=== PATIENT | male | born 1970 | race Caucasian/White ===

== ENCOUNTER 2021-04-09 20:18 | Emergency (ER) | payer BC, SELFPAY ==
[2021-04-09 20:42] VITALS: BP 143/96; PULSE 62; RESP 18; TEMP 36.8; O2SAT 98; BMI 29.6
--- NOTE | 2021-04-09 20:52 | HMH.EDUTC ---
[facility] [place] Disposition Clinical Impression: Laceration Disposition: Home, Self-Care Condition on Discharge: Good Instructions: DI for Laceration Repair -- Simple, DI for Laceration Repair Additional Instructions: return in 10 days for suture removal watch for s/s of infection keep area clean and dry Prescriptions: cephALEXin [Cephalexin 500mg Tab] 500 mg PO BID 7 Days #14 tab Prescription Printed Referrals: Provider,Referral, [Primary Care Provider] - Time of Disposition: 21:11 Medical Decision Making - Jose Inquiry Pt receiving controlled substance: No Vital Signs: 04/09/21 20:42 Temperature 98.3 F Temperature Source Oral Pulse Rate [Right Radial] 62 Respiratory Rate 18 Blood Pressure [Right Arm] 143/96 H Blood Pressure Mean [Right Arm] 111 Blood Pressure Source [Right Arm] Automatic Cuff Blood Pressure Position [Right Arm] Sitting 02 Sat by Pulse Oximetry 98 Oxygen Delivery Method Room Air [facility] [place] HPI - General Chief complaint: Urgent Treatment Center Stated complaint: cut left arm 04/09/21 @1200 Time Seen by Provider: 04/09/21 20:53 Mode of Arrival: Ambulatory Source of Information: Patient Limitations: No Limitations Description of Symptoms (Recalled from Triage Doc. by RN): c/o lac to left forearm HEENT Symptoms (Recalled from RN notes): No Resp Symptoms (Recalled from RN notes): No Skin Symptoms (Recalled from RN notes): Yes (lac to arm) MS Symptoms (Recalled from RN notes): No Functional Status (Recalled from RN notes): n/a - History of Present Illness Provider Complaint: 51 yr old male presnets for laceration to left forearm. pt states he was cutting a bandage off a calf and slipped and cut arm. kylie in 2019 - Related Data Previous Rx's Medication Instructions Recorded cephALEXin [Cephalexin 500mg Tab] 500 mg PO BID 7 Days #14 tab 04/09/21 - Worker's Comp Is this a Worker's Comp case?: No [facility] History - Hepatitis A Screen Drug use history?: No High risk sexual behaviors?: No History of sexually transmitted infection?: No Currently employed?: No Childcare worker?: No Do you have indoor plumbing?: Yes Do you have electricity?: Yes Attestation statement:: This patient has been screened for Hepatitis A risk factors. I have reviewed the patient's past medical history: Yes ROS Obtained: Yes Systems reviewed as appropriate & no additional complaints - Constitutional Constitutional: Reports system reviewed and no additional complaints, except as docu, Denies chills, Denies fever(s) - Eyes Eyes: Reports system reviewed and no additional complaints, except as docu, Denies blind spots - ENT Ears, Nose, Mouth, and Throat: Reports system reviewed and no additional complaints, except as docu, Denies sore throat - Cardiovascular Cardiovascular: Reports system reviewed and no additional complaints, except as docu, Denies chest pain - Respiratory Respiratory: Reports system reviewed and no additional complaints, except as docu, Denies shortness of breath - Gastrointestinal Gastrointestingal: Reports: system reviewed and no additional complaints, except as docu. Denies: abdominal pain - Genitourinary Male Genitourinary: Reports system reviewed and no additional complaints, except as docu - Musculoskeletal Musculoskeletal: Reports system reviewed and no additional complaints, except as docu, Denies joint pain - Integumentary/Breasts Skin/Breast: Reports system reviewed and no additional complaints, except as docu, Reports as per HPI, Reports rash - Neurologic Neurologic: Reports system reviewed and no additional complaints, except as docu, Denies dizziness - Endocrine Endocrine: Reports system reviewed and no additional complaints, except as docu, Denies fatigue - Hematologic/Lymphatic Henatologic/Lymphatic: Reports system reviewed and no additional complaints, except as docu, Denies easy bruising - Allergic/Immunologic Allergic/Immunologic: Reports system rev
[2021-04-09 21:12] VITALS: BP 143/96; PULSE 62; RESP 18; TEMP 36.8; O2SAT 98
== END 2021-04-09 21:13 | disposition home or self-care (01) ==
PROVIDERS: Emergency Provider Nurse Practitioner Family
DX: S51.812A Laceration without foreign body of left forearm, initial encounter (principal); W26.0XXA Contact with knife, initial encounter; Y92.79 Other farm location as the place of occurrence of the external cause
CPT/HCPCS: 12001; 99202; G0463

== ENCOUNTER → 2021-07-06 14:12 | Outpatient (CLI) | payer BC, SELFPAY | PROVIDERS: Visit Provider Nurse Practitioner | DX: U07.1 COVID-19 (principal) | CPT/HCPCS: C9803; U0003; U0005 ==

== ENCOUNTER 2021-12-29 08:47 | Emergency (ER) | payer BC, SELFPAY ==
[2021-12-29 08:48] VITALS: BP 136/83; PULSE 106; RESP 18; TEMP 38.1; O2SAT 98; BMI 28.1
[2021-12-29 08:53] VITALS: BP 136/83; PULSE 100; O2SAT 99
--- NOTE | 2021-12-29 08:53 | HMH.EDABDPAI ---
ED Disposition Clinical Impression: Sigmoid diverticulitis Disposition: Home, Self-Care Condition on Discharge: Good Instructions: Diverticulitis Additional Instructions: follow up PCP and GI call for appt, return here for worse Prescriptions: Amoxicillin [Amoxicillin 875MG Tab] 875 mg PO Q12H #20 tab Transmission Status: Pending to [facility] # metroNIDAZOLE [metroNIDAZOLE 500mg Tablet] 500 mg PO TID #30 tab Transmission Status: Pending to [facility] # Ondansetron [Zofran 4mg ODT] 4 mg PO TIDP PRN #12 tab PRN Reason: Nausea And Vomiting Transmission Status: Pending to [facility] # Referrals: Provider,MD Kady [Primary Care Provider] - Nguyễn Garcia MD [Staff Physician] - - Critical Care Critical Care Time: No Attestation: On , the high probability of a clinically significant, sudden or life threatening deterioration of the following system(s) required my full and direct attention, intervention and personal management. The time I documented below is in addition to time spent performing reported procedures but includes the following listed in this critical care notation. Medical Decision Making - Medical Records Medical records reviewed: Yes: I reviewed the patient's medical records. - Jose Inquiry Pt receiving controlled substance: No Vital Signs: 12/29/21 08:48 12/29/21 08:53 Temperature 100.6 F H Temperature Source Oral Pulse Rate 100 H Pulse Rate [Right Radial] 106 H Respiratory Rate 18 Blood Pressure 136/83 Blood Pressure [Right Arm] 136/83 Blood Pressure Mean 107 Blood Pressure Mean [Right Arm] 100 Blood Pressure Source [Right Arm] Automatic Cuff Blood Pressure Position [Right Arm] Sitting 02 Sat by Pulse Oximetry 98 99 Oxygen Delivery Method Room Air Room Air - Lab Data Lab Results 12/29/21 09:00: WBC 5.8, RBC 5.01, Hgb 14.4, Hct 43.0, MCV 85.8, MCH 28.7, MCHC 33.4, RDW 13.7, Plt Count 318, MPV 8.1, Neut % (Auto) 87.2 H, Lymph % (Auto) 8.9 L, Jerauld % (Auto) 1.2 L, Eos % (Auto) 2.0, Baso % (Auto) 0.7, Neut # (Auto) 5.1, Lymph # (Auto) 0.5 L, Jerauld # (Auto) 0.1, Eos # (Auto) 0.1, Baso # (Auto) 0.0, Total Counted 100, Neutrophils % (Manual) 82 H, Lymphocytes % (Manual) 18, Platelet Estimate Normal, RBC Morphology Normal 12/29/21 09:00: Sodium 137, Potassium 4.1, Chloride 102, Carbon Dioxide 27, Anion Gap 12.1, BUN 17, Creatinine 1.10, Estimated GFR 71, Est GFR ( Amer) 85, Glucose 97, Calcium 9.2, Total Bilirubin 1.1, AST 33, ALT 21, Alkaline Phosphatase 51, Total Protein 7.3, Albumin 4.4, Globulin 2.9, Albumin/Globulin Ratio 1.5 12/29/21 09:30: Lactate 1.5 Result diagrams: 12/29/21 09:00 12/29/21 09:00 Orders (Tests/Meds): ED MEDICATIONS Generic Name Dose Route Start Last Admin Trade Name Freq PRN Reason Stop Dose Admin Metronidazole 500 mg in 100 mls @ 100 mls/hr 12/29/21 10:24 Flagyl 500mg/100ml Ivpb IV 12/29/21 11:23 ONCE ONE Ceftriaxone Sodium 1 gm/ 50 mls @ 100 mls/hr 12/29/21 10:25 Sodium Chloride IV 12/29/21 10:54 ONCE ONE Discontinued Medications Generic Name Dose Route Start Last Admin Trade Name Freq PRN Reason Stop Dose Admin Sodium Chloride 1,000 mls @ 999 mls/hr 12/29/21 09:00 12/29/21 09:15 Sod Chlor 0.9% 1000ml Bag IV 12/29/21 10:00 999 mls/hr .Q1H1M ELIZABETH Administration Iopamidol 75 ml 12/29/21 09:47 12/29/21 09:49 Iopamidol-370 (76%);100ml Bottle IV 12/29/21 09:48 75 ml ONCE ONE Administration Metoclopramide HCl 10 mg 12/29/21 08:59 12/29/21 09:55 Metoclopramide Hcl 10mg/2ml Vial IVP 12/29/21 09:00 10 mg ONCE ONE Administration Ondansetron HCl 8 mg 12/29/21 08:59 12/29/21 09:55 Ondansetron 4mg/2ml Vial IV 12/29/21 09:00 8 mg ONCE ONE Administration Sodium Chloride 10 ml 12/29/21 09:47 12/29/21 09:49 Sodium Chloride 0.9% 10ml Syr (Rad Only) IV 12/29/21 09:48 10 ml ONCE ONE Administrati
--- NOTE | 2021-12-29 08:58 | PC.NURSE ---
JOSELYN SERRANO at
--- NOTE | 2021-12-29 09:00 | CT_ITS ---
FINAL REPORT TECHNIQUE: After the administration of oral and intravenous contrast, axial images were obtained through the abdomen and pelvis by computed tomography. The study was performed with techniques to keep radiation dose as low as reasonably achievable, (ALARA). Individual dose reduction techniques using automated exposure control or adjustment of mA and/or kV according to the patient's size were employed. CLINICAL HISTORY: feveer, llq abd pain FINDINGS: Abdomen: The lung bases are clear. The liver parenchyma is homogeneous. The gallbladder is mildly distended. The spleen, pancreas, adrenals and kidneys appear unremarkable. The aorta is normal in caliber. There is no free fluid or adenopathy. Pelvis: There is extensive inflammatory reaction surrounding the mid sigmoid colon with associated mucosal edema consistent with acute diverticulitis. There is no definite abscess. The appendix is normal. The urinary bladder is unremarkable. There is no free fluid or adenopathy. IMPRESSION: Acute mid sigmoid diverticulitis. Reviewed, Interpreted and Dictated by Yogesh Mello MD Transcribed by Celio Valencia Authenticated and [facility]
[2021-12-29 09:11] LABS: Basophils % 0.7 % (0.1-2.0); Eosinophils # 0.1 K/mm3 (0.0-0.4); Hemoglobin 14.4 g/dL (14.1-18.0); Lymphocytes # 0.5 K/mm3 (0.7-4.5); Lymphocytes % 8.9 % (10-50); Mean Corpuscular HGB Conc 33.4 g/dL (31.8-35.4); Mean Corpuscular Hemoglobin 28.7 pg (27.0-31.2); Mean Corpuscular Volume 85.8 fl (80-94); Mean Platelet Volume 8.1 fl (7.4-10.4); Monocytes # 0.1 K/mm3 (0.1-1.0); Monocytes % 1.2 % (1.7-9.3); Neutrophils # 5.1 K/mm3 (1.8-7.8); Neutrophils % 87.2 % (37.0-80.0); Platelet Count 318 K/mm3 (142-424); Red Blood Count 5.01 M/mm3 (4.60-6.20); Red Cell Distribution Width 13.7 % (11.5-17.5); White Blood Count 5.8 K/mm3 (4.8-10.8)
--- NOTE | 2021-12-29 09:12 | PC.NURSE ---
Pt provided with a sheet and pillow per request for comfort. Resting on stretcher at this time.
[2021-12-29 09:13] LABS: Chloride 102 mmol/L (98-107); MANUAL DIFFERENTIAL MANUAL DIFFERENTIAL (MANUAL DIFF); Sodium 137 mmol/L (136-145)
[2021-12-29 09:14] LABS: Potassium 4.1 mmoL/L (3.5-5.1)
[2021-12-29 09:16] LABS: Alanine Aminotransferase 21 U/L (12-78); Albumin Level 4.4 g/dl (3.5-5.0); Albumin/Globulin Ratio 1.5 (1.1-1.8); Alkaline Phosphatase 51 U/L (38-126); Anion Gap 12.1 mEq/L (5-15); Aspartate Amino Transferase 33 U/L (17-59); Bilirubin,Total 1.1 mg/dl (0.2-1.3); Blood Urea Nitrogen 17 mg/dl (9-20); Calcium 9.2 mg/dl (8.4-10.2); Carbon Dioxide 27 mmol/L (22.0-30.0); Estimated Glomerular Filt Rate 71 ml/min (>60); GFR (African American) 85 ML/MIN (>60); Globulin 2.9 g/dL (1.3-3.2); Glucose 97 mg/dl (74-100); Total Protein,Serum 7.3 g/dl (6.3-8.2)
--- NOTE | 2021-12-29 09:29 | PC.NURSE ---
Notified rad of CT
[2021-12-29 09:36] LABS: Lymphocytes % 18 % (10-50); Neutrophils % 82 % (42-76); Total Cells Counted 100
--- NOTE | 2021-12-29 09:36 | PC.NURSE ---
Pt to CT
[2021-12-29 09:38] LABS: Platelet Estimate Normal; RBC Morphology Normal
--- NOTE | 2021-12-29 09:50 | PC.NURSE ---
Pt returned from CT
[2021-12-29 09:56] LABS: Lactic Acid 1.5 mmol/L (0.7-2.1)
--- NOTE | 2021-12-29 09:58 | PC.NURSE ---
Following med administration, pt is resting comfortably on stretcher in room with lights off at this time.
--- NOTE | 2021-12-29 10:20 | PC.NURSE ---
ER at updating patient on imaging results and POC.
--- NOTE | 2021-12-29 10:54 | PC.NURSE ---
Pt ambulating to bathroom at this time.
--- NOTE | 2021-12-29 10:58 | PC.NURSE ---
Pt returned from bathroom and laying in bed
[2021-12-29 11:11] VITALS: BP 118/75; PULSE 111; O2SAT 95
[2021-12-29 11:30] VITALS: BP 120/76; PULSE 108; O2SAT 97
[2021-12-29 12:00] VITALS: BP 113/73; PULSE 106; O2SAT 95
[2021-12-29 12:58] VITALS: BP 128/74; PULSE 112; RESP 18; TEMP 37.5; O2SAT 98
== END 2021-12-29 13:03 | disposition home or self-care (01) ==
PROVIDERS: Emergency Provider Emergency Medicine
DX: K57.32 Diverticulitis of large intestine without perforation or abscess without bleeding (principal); R42 Dizziness and giddiness
CPT/HCPCS: 74177; 80053; 83605; 85007; 85025; 96361; 96374; 96375; 99285; J0696; J2405; Q9967

== ENCOUNTER → 2022-12-06 13:47 | Outpatient (CLI) | payer BC, SELFPAY ==
[2022-12-06 14:07] LABS: Astrovirus Not Detected (NotDetected); Clostridium Difficile A/B, PCR Not Detected (NotDetected); Cryptosporidium Not Detected (NotDetected); Cyclospora Cayetanesis Not Detected (NotDetected); Entamoeba histolytica Not Detected (NotDetected); Enteroaggregative E coli Not Detected (NotDetected); Enteropathogenic E coli Not Detected (NotDetected); Giardia lamblia Not Detected (NotDetected); Norovirus Not Detected (NotDetected); Plesimonas Shigalloides, PCR Not Detected (NotDetected); Rotavirus A Not Detected (NotDetected); Salmonella, PCR Not Detected (NotDetected); Sapovirus Not Detected (NotDetected); Shigella Enterovasive E coli Not Detected (NotDetected); Vibrio Cholerae Not Detected (NotDetected); Vibrio, PCR Not Detected (NotDetected); Yersinia Entercolitica, PCR Not Detected (NotDetected)
[2022-12-06 19:43] LABS: Campylobacter Detected (NotDetected)
[2022-12-06 19:44] LABS: Adenovirus F 40/41, stool Detected (NotDetected); Enterotoxigenic E coli Detected (NotDetected); Shiga-like toxin E coli Detected (NotDetected)
== END ==
PROVIDERS: PCP Nurse Practitioner Family; Visit Provider Nurse Practitioner Family
DX: R19.7 Diarrhea, unspecified (principal); B97.0 Adenovirus as the cause of diseases classified elsewhere; A04.5 Campylobacter enteritis; B96.89 Other specified bacterial agents as the cause of diseases classified elsewhere; B96.21 Shiga toxin-producing Escherichia coli [E. coli] [STEC] O157 as the cause of diseases classified elsewhere; A04.1 Enterotoxigenic Escherichia coli infection
CPT/HCPCS: 87507

== ENCOUNTER 2024-03-22 12:21 | Outpatient (CLI) | payer BC, SELFPAY | END 2024-03-22 23:59 | disposition home or self-care (01) | LOC: RT 12:26 | PROVIDERS: PCP Internal Medicine Adolescent Medicine; Visit Provider Internal Medicine Adolescent Medicine | DX: R00.2 Palpitations (principal) | CPT/HCPCS: 93225; 93226 ==